=== PATIENT | female | born 1970 | race Caucasian/White ===

== ENCOUNTER 2023-03-07 10:01 | Day surgery (SDC) | payer BC ==
[2023-03-07 11:06] VITALS: BMI 46.0
[2023-03-07 12:59] VITALS: TEMP 98
[2023-03-07 13:01] VITALS: BP 120/80; PULSE 74; RESP 18
== END 2023-03-07 13:09 | disposition home or self-care (01) ==
LOC: FASU-ENDO 10:01
PROVIDERS: ATTEND Internal Medicine Gastroenterology
PROC: 0DB78ZX Excision of Stomach, Pylorus, Via Natural or Artificial Opening Endoscopic, Diagnostic (ICD-10-PCS; 2023-03-07)
PROC: 0DB98ZX Excision of Duodenum, Via Natural or Artificial Opening Endoscopic, Diagnostic (ICD-10-PCS; principal; 2023-03-07 12:21)
DX: K29.80 Duodenitis without bleeding (principal); K44.9 Diaphragmatic hernia without obstruction or gangrene; K29.70 Gastritis, unspecified, without bleeding
CPT/HCPCS: 84703; 88305-TC; 88342-TC